=== PATIENT | male | born 1940 | race Caucasian/White ===

== ENCOUNTER 2017-09-30 08:01 | Day surgery (SDC) | payer MEDICARE, OTHER ==
[2017-09-30] MEDS ORDERED: LIDOCAINE 2% (SDV) 5 ML INJ (09:30)
[2017-09-30] MEDS ORDERED: MIDAZOLAM 1 MG/ML 2 ML INJ (09:30)
[2017-09-30] MEDS ORDERED: PROPOFOL 20 ML (09:31)
== END 2017-09-30 17:42 | disposition home or self-care (01) ==
LOC: GIL 08:01
DX: K92.2 Gastrointestinal hemorrhage, unspecified (principal); K29.70 Gastritis, unspecified, without bleeding; I10 Essential (primary) hypertension; E78.5 Hyperlipidemia, unspecified
CPT/HCPCS: 43239; 88305; 88312